=== PATIENT | female | born 1970 | race African-American/Black ===

== ENCOUNTER 2017-11-06 18:59 | Emergency (ER) | payer OTHER ==
[2017-11-06 19:44] LABS: BILIRUBIN,URINE NEGATIVE (NEG); CLARITY,URINE CLEAR; COLOR,URINE YELLOW; GLUCOSE,URINE NEGATIVE (NEG); NITRITE,URINE NEGATIVE (NEG); PH,URINE 5.5; PROTEIN,URINE NEGATIVE (NEG-TRACE); UROBILINOGEN,URINE 0.2 mg/dL (0.2 mg/dL)
[2017-11-06] MEDS: AZITHROMYCIN 250 MG TABLET. PO (19:48)
[2017-11-06] MEDS: NEOMY/BACITR/POLYMYXIN OINT PACKET. TP (19:49)
[2017-11-06] MEDS: cefTRIAXone IM 250 MG VIAL IM (19:49)
[2017-11-06 19:50] LABS: RBC,URINE RARE /HPF (0-2); WBC,URINE RARE /HPF (0-4)
[2017-11-06 19:51] LABS: BACTERIA,URINE FEW /HPF (0-FEW); SQUAMOUS EPITHELIAL CELL,UR MOD /LPF
[2017-11-06] MEDS ORDERED: metroNIDAZOLE 500 MG TABLET (20:07)
[2017-11-06] MEDS: metroNIDAZOLE 500 MG TABLET PO (20:10)
[2017-11-08 15:27] LABS: CHLAMYDIA PROBE Negative (Negative); GC PROBE Negative (Negative)
== END 2017-11-06 20:11 | disposition home or self-care (01) ==
LOC: ER 18:59
DX: N76.4 Abscess of vulva (principal); N76.0 Acute vaginitis; B96.89 Other specified bacterial agents as the cause of diseases classified elsewhere; Z90.710 Acquired absence of both cervix and uterus
CPT/HCPCS: 81001; 87491; 87591; 96372; 99284; J0696; Q0111; Q0144

== ENCOUNTER → 2019-02-09 | Outpatient (CLI) | payer OTHER ==
[2017-11-06 19:11] VITALS: BP 145/76
[~2019-02-09] MED LIST: CEPH-264 PO; METR500T PO
--- NOTE | 2019-02-09 12:39 | RAD ---
PELVIS W/TV History: Right-sided pelvic pain. Comparison: None. Technique: Grayscale and color Doppler imaging of the pelvis was performed using transabdominal and transvaginal technique. Findings: Prior partial hysterectomy. Nabothian cysts identified within the cervix. Right ovary not identified due to overlying bowel gas and positioning. No right adnexal mass or fluid collection. Left ovary measures 3.2 x 2.3 x 3.1 cm with normal blood flow. No free fluid. IMPRESSION: 1. Prior partial hysterectomy. 2. Right ovary not identified. Electronically signed by: Carlos Rivas DO (02/09/2019 12:37 PM) [facility]
--- NOTE | 2019-02-10 10:05 | RAD ---
DATE: 02/09/2019 7:45 AM EXAM: MAMMO JESUS SCREENING BILATERAL HISTORY: Screening mammogram COMPARISON: July 26, 2014. Bilateral CC and MLO views of the breasts were performed. Bilateral breast tomosynthesis was performed in CC and MLO projections. This study was interpreted with the benefit of Computerized Aided Detection (CAD). FINDINGS: Breast Density: HETERO The breast parenchyma Is heterogeneously dense, which could reduce sensitivity of mammography. Breast parenchyma level C New smoothly marginated mass within the left breast anterior depth 2 to 3:00 position approximately 6 cm from the nipple measures 0.5 x 0.6 cm. No new suspicious microcatheter ossification's, mass or architectural distortion within the right breast. IMPRESSION: New mass within the left breast. Recommended targeted ultrasound to further evaluate. BI-RADS CATEGORY: 0 INCOMPLETE: NEEDS ADDITIONAL IMAGING EVALUATION AND/OR PRIOR MAMMOGRAMS FOR COMPARISON. RECOMMENDED FOLLOW-UP: ADD ADDITIONAL IMAGING The patient will be contacted to return for additional imaging and a supplemental report will follow. PQRS compliance statement: Patient information was entered into a reminder system. Mammography is a sensitive method for finding small breast cancers, but it does not detect them all and is not a substitute for careful clinical examination. A negative mammogram does not negate a clinically suspicious finding and should not result in delay in biopsying a clinically suspicious abnormality. "Our facility is accredited by the [employer] Mammography [employer]."
== END | disposition home or self-care (01) ==
LOC: US 07:17
PROVIDERS: ATTEND Nurse Practitioner Women's Health
DX: Z12.31 Encounter for screening mammogram for malignant neoplasm of breast (principal); N63.21 Unspecified lump in the left breast, upper outer quadrant; N88.8 Other specified noninflammatory disorders of cervix uteri; Z90.710 Acquired absence of both cervix and uterus
CPT/HCPCS: 76830; 76856; 77063; 77067

== ENCOUNTER → 2019-02-16 | Outpatient (CLI) | payer OTHER ==
[2017-11-06 19:11] VITALS: BP 145/76
--- NOTE | 2019-02-16 11:25 | RAD ---
DATE: 02/16/2019. EXAM: BREAST LEFT. HISTORY: Mass on left breast ultrasound. Sonography is requested. COMPARISON: 02/09/2019. FINDINGS: Sonography of the left upper outer breast was performed at the site of concern. At the ventricular position 6 cm from the nipple, a 5 x 4 cm anechoic masses consistent with a benign cyst. There is no suspicious sonographic finding. BI-RADS CATEGORY: 2 BENIGN FINDING(S). RECOMMENDED FOLLOW-UP: 12M 12 MONTH FOLLOW-UP. PQRS compliance statement: Patient information was entered into a reminder system with a target due date 02/10/2020 for the next mammogram. Mammography is a sensitive method for finding small breast cancers, but it does not detect them all and is not a substitute for careful clinical examination. A negative mammogram does not negate a clinically suspicious finding and should not result in delay in biopsying a clinically suspicious abnormality. "Our facility is accredited by the [employer] Mammography Program."
== END | disposition home or self-care (01) ==
LOC: US 10:57
PROVIDERS: ATTEND Nurse Practitioner Women's Health
DX: R92.8 Other abnormal and inconclusive findings on diagnostic imaging of breast (principal)
CPT/HCPCS: 76641

== ENCOUNTER 2019-05-21 13:26 | Emergency (ER) | payer OTHER ==
[~2019-05-21] VITALS: Ht 175.3 cm; Wt 118.0 kg
[2019-05-21] MEDS ORDERED: KETOROLAC TROMETHAMINE 10 MG TABLET PO STA (13:44)
[2019-05-21 13:46] VITALS: BP 147/86
--- NOTE | 2019-05-21 13:53 | PHYS DOC ---
Past Medical History Past Medical History: No Pertinent History Past Surgical History: Hysterectomy Smoking Status: Current Every Day Smoker Alcohol Use: Occasionally Drug Use: None Adult General Chief Complaint Chief Complaint: FOOT INJURY PAIN HPI HPI Patient is a 49 year old female who presents with right lower extremity pain after she fell out of a hive bed yesterday morning. The patient states that she's been having difficulty putting weight on the leg and rates her pain as 7 out of 10 in severity. The patient denies taking any medicines so far for the p ain. Denies any additional symptoms. Complete ROS were reviewed and found to be within normal limits, except as documented in the HPI Current Medications Current Medications Current Medications Medications (Trade) Dose Ordered Sig/Tona Start Time Stop Time Status Last Admin Dose Admin Ketorolac Tromethamine (Toradol) 10 mg 1X STAT 05/21/19 13:44 05/21/19 13:47 DC 05/21/19 14:15 10 MG Allergies Allergies Allergies Coded Allergies Type Severity Reaction Last Updated Verified No Known Drug Allergies 12/28/14 No Physical Exam Physical Exam Constitutional: Well developed, well nourished, no acute distress, non-toxic appearance. [] HENT: Normocephalic, atraumatic, bilateral external ears normal, oropharynx moist, no oral exudates, nose normal. [] Eyes: PERRLA, EOMI, conjunctiva normal, no discharge. [] Skin: Warm, dry, no erythema, no rash. [] Back: No tenderness, no CVA tenderness. [] Extremities: Tenderness to R lower leg with an abrasion to the leg. The patient has mild edema to 4th and 5th toes, with abrasion to web. Neurologic: Alert and oriented X 3, normal motor function, normal sensory function, no focal deficits noted. [] Psychologic: Affect normal, judgement normal, mood normal. [] Current Patient Data Vital Signs Vital Signs Date Time Temp Pulse Resp B/P (MAP) Pulse Ox O2 Delivery O2 Flow Rate FiO2 05/21/19 13:46 98.2 93 18 147/86 (106) 98 Room Air 98.2 EKG EKG [] Radiology/Procedures Radiology/Procedures [][facility] [address] [place], [place] [id number] IMAGING REPORT Signed PATIENT: SHARON BRITT ACCOUNT: [id number] : 1970 LOCATION: ER AGE: 49 SEX: F EXAM STATUS: REG ER ORD. PHYSICIAN: TORIBIO ALANIZ APRN REASON: fall. right foot pain PROCEDURE: FOOT RIGHT 3V Study: 1. CR FOOT RIGHT 3V 2. CR TIBIA FIBULA RIGHT Indication: Fall. Foot and anterior tibial pain. Comparison: None. Findings: Intact tibia and fibula. Patellar enthesophytes. Soft tissue prominence along the anterior aspect of the distal tibia approaching the ankle. No acute fracture or traumatic malalignment. Prominent chronic dorsal spurring at the talar neck without findings to suggest osseous coalition. Scattered degenerative changes such as at the great toe MTP joint, first TMT joint and medial aspect of the talonavicular joint. Probable mild hallux valgus noting the lack of weightbearing. Impression: No acute fracture seen to involve the right tibia/fibula or right foot. Chronic findings as above. Electronically signed by: DIONNE MADERA MD (05/21/2019 2:25 PM) [id number] DICTATED and SIGNED BY: DIONNE MADERA MD DATE: 05/21/19 1425 Course & Med Decision Making Course & Med Decision Making Pertinent Labs and Imaging studies reviewed. (See chart for details) Will get imaging and give Toradol. Dragon Disclaimer Dragon Disclaimer This electronic medical record was generated, in whole or in part, using a voice recognition dictation system. Departure Departure Impression: Primary Impression: Fall Disposition: 01 HOME, SELF-CARE Condition: STABLE Referrals: GLORY CASTRO DO (PCP) Patient Instructions: Fall Prevention and Home Safety Additional Instructions: Thank you for visiting [facility]. We appreciate you trusting us with your care. If any additional problems come up don't hesitate to return to visit us. Please follow up with your primary care provider so they can plan additional care if needed and know about the problem that you had. If symptoms worsen come back to the Emergency Department. Any concerning symptoms that start such as chest pain, shortness of air, weakness or numbness on one side of the body, running high fevers or any other concerning symptoms return to the ER. Problem Qualifiers Primary Impression: Fall Encounter type: initial encounter Qualified Codes: W19.XXXA - Unspecified fall, initial encounter TORIBIO ALANIZ APRN May 21, 2019 13:53
--- NOTE | 2019-05-21 14:28 | RAD ---
Study: 1. CR FOOT RIGHT 3V 2. CR TIBIA FIBULA RIGHT Indication: Fall. Foot and anterior tibial pain. Comparison: None. Findings: Intact tibia and fibula. Patellar enthesophytes. Soft tissue prominence along the anterior aspect of the distal tibia approaching the ankle. No acute fracture or traumatic malalignment. Prominent chronic dorsal spurring at the talar neck without findings to suggest osseous coalition. Scattered degenerative changes such as at the great toe MTP joint, first TMT joint and medial aspect of the talonavicular joint. Probable mild hallux valgus noting the lack of weightbearing. Impression: No acute fracture seen to involve the right tibia/fibula or right foot. Chronic findings as above. Electronically signed by: DIONNE MADERA MD (05/21/2019 2:25 PM) [id number]
== END 2019-05-21 14:50 | disposition home or self-care (01) ==
LOC: ER 13:26
DX: S80.811A Abrasion, right lower leg, initial encounter (principal); R60.0 Localized edema; F17.200 Nicotine dependence, unspecified, uncomplicated; Z90.710 Acquired absence of both cervix and uterus; W18.39XA Other fall on same level, initial encounter; Y93.89 Activity, other specified; Y92.89 Other specified places as the place of occurrence of the external cause; Y99.8 Other external cause status
CPT/HCPCS: 73590; 73630; 99284